=== PATIENT | male | born 1990 | race Caucasian/White ===

== ENCOUNTER 2020-03-20 19:46 | Emergency (ER) | payer OTHER ==
[~2020-03-20] VITALS: Ht 167.6 cm; Wt 79.4 kg
[~2020-03-20 19:46] MED LIST: PEPCID20 MG PO; PROZAC20 MG PO; ZYRTEC10 M4 PO
[2020-03-20 19:50] VITALS: BP 153/80
== END 2020-03-20 20:12 | disposition home or self-care (01) ==
LOC: ER 19:46
DX: S00.03XA Contusion of scalp, initial encounter (principal); F41.9 Anxiety disorder, unspecified; R42 Dizziness and giddiness; W21.07XA Struck by softball, initial encounter; Y93.64 Activity, baseball; Y92.89 Other specified places as the place of occurrence of the external cause; Y99.8 Other external cause status